=== PATIENT | female | born 1970 | race Caucasian/White ===

== ENCOUNTER 2019-11-10 09:42 | Outpatient (CLI) | payer MEDICAID ==
[2019-11-10] MEDS ORDERED: NONE PER PT (10:34)
[2019-11-10 10:39] LABS: MICROSCOPIC AUTO
[2019-11-10 10:41] LABS: BASOPHILS # (AUTO) 0.09 x10^3/uL (0-0.1); BASOPHILS % (AUTO) 1 % (0-1); EOSINOPHILS # (AUTO) 0.34 x10^3/uL (0-0.4); EOSINOPHILS % (AUTO) 3 % (1-7); LYMPHOCYTES % (AUTO) 21 % (22-44); MD NO; MEAN CORPUSCULAR HEMOGLOBIN 27.1 pg (27.0-34.8); MEAN CORPUSCULAR HGB CONC 32.1 g/dL (32.4-35.8); MEAN CORPUSCULAR VOLUME 84.3 fL (80-100); MEAN PLATELET VOLUME 7.4 fL (7.4-10.4); MONOCYTES # (AUTO) 0.71 x10^3/uL (0.2-0.8); MONOCYTES % (AUTO) 6 % (2-9); NEUTROPHILS # (AUTO) 7.66 x10^3/uL (1.8-6.8); NEUTROPHILS % (AUTO) 68 % (42-75); PLATELET COUNT 403 x10^3/uL (130-400); RED BLOOD COUNT 4.84 x10^6/uL (3.82-5.3); RED CELL DISTRIBUTION WIDTH 15.3 % (9.6-15.2)
== END 2019-11-10 23:59 | disposition home or self-care (01) ==
LOC: STAR 09:42
PROVIDERS: ATTEND Obstetrics & Gynecology
DX: Z11.59 Encounter for screening for other viral diseases (principal); I34.0 Nonrheumatic mitral (valve) insufficiency
CPT/HCPCS: 36415; 71046; 81001; 84702; 85025; 87086; 87635; 93005

== ENCOUNTER 2019-11-13 12:57 | Observation (INO) | payer MEDICAID ==
[~2019-11-13] VITALS: Ht 157.5 cm; Wt 66.0 kg
[~2019-11-13 12:57] MED LIST: NONE PER PT
[2019-11-13] MEDS ORDERED: LACTATED RINGERS 1,000 ML IV SCH (13:30)
[2019-11-13] MEDS ORDERED: CHLORHEXIDINE 15 ML UDC MM STA (13:31)
[2019-11-13 13:33] VITALS: BP 125/81
[2019-11-13] MEDS ORDERED: SILVER NITRATE STICK TP ONE (14:30)
[2019-11-13] MEDS ORDERED: BUPIVACAINE/PF-EPI 0.25% 1:200K ONE (14:30)
[2019-11-13] MEDS ORDERED: MIDAZOLAM 1 MG/ML, 2ML ONE (15:25)
[2019-11-13] MEDS ORDERED: GLYCOPYRROLATE 0.2MG/1ML, 5ML ONE (15:25)
[2019-11-13] MEDS ORDERED: ROCURONIUM 10MG/ML,5ML ONE (15:25)
[2019-11-13] MEDS ORDERED: DEXAMETHASONE 4 MG/ML, 1ML ONE (15:25)
[2019-11-13] MEDS ORDERED: PROPOFOL 10 MG/ML, 20ML ONE (15:25)
[2019-11-13] MEDS ORDERED: LIDOCAINE-MPF 2% ,5ML ONE (15:25)
[2019-11-13] MEDS ORDERED: FENTANYL PF 250 MCG/5ML ONE (15:25)
[2019-11-13] MEDS ORDERED: LABETALOL 5MG/ML, 20ML IV PRN (15:30)
[2019-11-13] MEDS ORDERED: ALBUTEROL/IPRATROPIUM 2.5MG/0.5MG, 3 ML NPPB PRN (15:30)
[2019-11-13] MEDS ORDERED: MEPERIDINE/PF 25MG/0.5ML IVPush PRN (15:30)
[2019-11-13] MEDS ORDERED: METOCLOPRAMIDE 5 MG/ML, 2ML IVPush PRN (15:30)
[2019-11-13] MEDS ORDERED: HYDROcodone/APAP 7.5-325MG/15ML UDC PO PRN (15:30)
[2019-11-13] MEDS ORDERED: MIDAZOLAM 1 MG/ML, 2ML IV PRN (15:30)
[2019-11-13] MEDS ORDERED: DIAZEPAM 5 MG/ML, 2ML IVPush PRN (15:30)
[2019-11-13] MEDS ORDERED: ACETAMINOPHEN 325 MG TABLET PO PRN (15:30)
[2019-11-13] MEDS ORDERED: FENTANYL PF 100 MCG/2ML IV PRN (15:30)
[2019-11-13] MEDS ORDERED: EPHEDRINE 50 MG/ML, 1ML IM PRN (15:30)
[2019-11-13] MEDS ORDERED: HALOPERIDOL 5 MG/ML IV PRN (15:30)
[2019-11-13] MEDS ORDERED: EPHEDRINE 50 MG/ML, 1ML IVPush PRN (15:30)
[2019-11-13] MEDS ORDERED: ONDANSETRON 2MG/ML, 2ML IVPush PRN (15:30)
[2019-11-13] MEDS ORDERED: HYDROmorphone 1 MG/ML, 1ML INJ IVPush PRN (15:30)
[2019-11-13] MEDS ORDERED: OXYcodone 5 MG/5 ML ORAL.SOL UDC PO PRN ×2 (15:30→16:30)
[2019-11-13] MEDS ORDERED: KETOROLAC 30 MG/1 ML IVPush PRN (15:30)
[2019-11-13] MEDS ORDERED: DIPHENHYDRAMINE 50 MG/ML, 1ML IVPush PRN (15:30)
[2019-11-13] MEDS ORDERED: LORazepam 2 MG/ML, 1ML IVPush PRN (15:30)
[2019-11-13] MEDS ORDERED: morphine SULFATE 10 MG/ML, 1ML IVPush PRN (16:30)
== END 2019-11-13 17:00 | disposition home or self-care (01) ==
LOC: OR 12:57 → ORIP 12:57 → EDSTATUS 15:00 → OR 17:55
PROVIDERS: ADMIT Obstetrics & Gynecology; ATTEND Obstetrics & Gynecology
DX: N93.9 Abnormal uterine and vaginal bleeding, unspecified (principal); R93.89 Abnormal findings on diagnostic imaging of other specified body structures; D86.9 Sarcoidosis, unspecified; N81.4 Uterovaginal prolapse, unspecified
CPT/HCPCS: 58558; 88305; G0378; J1100; J2250; J2704; J3010; J3490